=== PATIENT | female | born 1980 | race Caucasian/White ===

== ENCOUNTER 2020-02-17 13:47 | Emergency (ER) | payer OTHER ==
[~2020-02-17] VITALS: Ht 157.5 cm; Wt 61.2 kg
[~2020-02-17 13:47] MED LIST: BACTRIM DS TAB1 EACH PO; CLONAZEPAM PO; DIOVAN HCT 3201 EACH; FLEXERIL PO; PAXIL CR25 MG PO; PAXIL CR37.5 MG PO; PROTONIX40 M2 PO; PROTONIX40 MG PO; SEASONALE1 EACH PO; TOPAMAX50 MG; VICODIN 5-5001 EACH PO; VICODIN PO; XANAX 0.5 MG0.5 MG PO
[2020-02-17 15:04] LABS: HEMATOCRIT 42.4 % (37.0-47.0); HEMOGLOBIN 14.6 gm/dL (12.0-15.0); MCH 34.5 pg (26.0-34.0); MCHC 34.5 g/dL (28.0-37.0); MCV 100.1 fL (80.0-100.0); MPV 8.3 fl. (7.2-11.1); RBC 4.23 mil/uL (4.20-5.00); RDW-CV 14.9 % (10.5-14.5)
[2020-02-17 15:15] LABS: CALCIUM 8.9 mg/dL (8.5-10.1); POTASSIUM 3.7 mmol/L (3.5-5.1)
[2020-02-17 15:19] LABS: ALBUMIN 3.7 g/dL (3.4-5.0); TOTAL BILIRUBIN 0.4 mg/dL (<0.1-1.0); TOTAL PROTEIN 7.8 g/dL (6.4-8.2)
[2020-02-17 15:27] LABS: ALCOHOL < 10 mg/dL (<10); SALICYLATE 5.9 mg/dL (2.8-20.0)
[2020-02-17 15:28] LABS: ACETAMINOPHEN < 2 ug/mL (10-30)
[2020-02-17 15:50] VITALS: BP 125/70
== END 2020-02-17 15:51 | disposition left against medical advice (07) ==
LOC: M.ERS 13:47
PROVIDERS: Personal Emergency Response Attendant
DX: F29 Unspecified psychosis not due to a substance or known physiological condition (principal); F41.9 Anxiety disorder, unspecified; G47.00 Insomnia, unspecified; G43.909 Migraine, unspecified, not intractable, without status migrainosus

== ENCOUNTER 2020-02-17 18:53 | Emergency (ER) | payer OTHER ==
[~2020-02-17] VITALS: Ht 165.1 cm; Wt 90.7 kg
[2020-02-17 19:27] LABS: URINE BILIRUBIN NEGATIVE (Negative); URINE BLOOD NEGATIVE (Negative); URINE CLARITY CLEAR; URINE COLOR YELLOW; URINE GLUCOSE-RANDOM NEGATIVE (Negative); URINE KETONES NEGATIVE (Negative); URINE LEUKOCYTES-REFLEX NEGATIVE (Negative); URINE NITRITE-REFLEX NEGATIVE (Negative); URINE PROTEIN 1+ (Negative); URINE SPECIFIC GRAVITY 1.015 (1.005-1.030); URINE UROBILINOGEN 0.2 E.U./dl (0.2-1.0)
[2020-02-17 19:35] LABS: AMP/METHAMP POSITIVE (Negative); BARBITURATES Negative (Negative); BENZODIAZEPINES Negative (Negative); COCAINE Negative (Negative); METHADONE Negative (Negative); OPIATES Negative (Negative); PCP Negative (Negative); THC POSITIVE (Negative)
[2020-02-20 20:01] VITALS: BP 110/57
== END 2020-02-20 20:01 | disposition home or self-care (01) ==
LOC: M.ERS 18:53
PROVIDERS: Emergency Medicine Emergency Medical Services
DX: Z03.818 Encounter for observation for suspected exposure to other biological agents ruled out (principal); F29 Unspecified psychosis not due to a substance or known physiological condition; R45.851 Suicidal ideations; F41.9 Anxiety disorder, unspecified; G43.909 Migraine, unspecified, not intractable, without status migrainosus; Z98.890 Other specified postprocedural states